=== PATIENT | male | born 1955 | race Caucasian/White ===

== ENCOUNTER 2016-12-04 23:48 | Emergency (ER) | payer OTHER, MEDICAID ==
[~2016-12-04] VITALS: Ht 170.2 cm; Wt 120.0 kg
[~2016-12-04 23:48] MED LIST: ALBU6.7H INH; AMIT10TA6 PO; ASPI325T PO; ATOR40TA16 PO; CARV25TA PO; CREO3000 PO; FENO50TA PO; FENT100D T-DERMAL; GLUM1000 PO; ISOS20TA PO; LANTUS2P SQ; PLAV75TA29 PO; POTA-163 PO; ROXI30TA14 PO; TAMS5CAP PO; XANA1TAB2 PO
[2016-12-04 23:51] VITALS: BP 175/83; PULSE 98; RESP 32; TEMP 98; O2SAT 98
== END 2016-12-05 02:15 | disposition left against medical advice (07) ==
LOC: NED 23:48
DX: R07.9 Chest pain, unspecified (principal)
CPT/HCPCS: 99281

== ENCOUNTER 2017-03-12 19:45 | Observation (INO) | payer OTHER ==
[~2017-03-12] VITALS: Ht 170.2 cm; Wt 115.0 kg
[2017-03-12 19:45] VITALS: RESP 21; O2SAT 99
[2017-03-12 19:52] VITALS: BP 160/70; PULSE 66; RESP 21; TEMP 98; O2SAT 99
[2017-03-12] MEDS ORDERED: SODIUM CHLORIDE 0.9% FLUSH 10 ML FLUSH IVF PRN (20:00)
[2017-03-12 20:09] LABS: BASOPHIL # 0.1 TH/MM3 (0-0.2); BASOPHIL % 0.9 % (0.0-2.0); EOSINOPHIL # 0.2 TH/MM3 (0-0.4); EOSINOPHIL % 3.1 % (0.0-4.0); HEMATOCRIT 41.6 % (39.0-51.0); HEMO FLAGS DIFF FINAL; LYMPH % 23.8 % (9.0-44.0); LYMPHOCYTE # 1.8 TH/MM3 (1.0-4.8); MEAN CELL VOLUME 89.9 FL (80.0-100.0); MEAN CORPUSCULAR HEMOGLOBIN 30.9 PG (27.0-34.0); MEAN CORPUSCULAR HGB CONC 34.4 % (32.0-36.0); MONO % 8.2 % (0.0-8.0); PLATELET COUNT 231 TH/MM3 (150-450); RED BLOOD COUNT 4.63 MIL/MM3 (4.50-5.90); RED CELL DISTRIBUTION WIDTH 13.8 % (11.6-17.2); WHITE BLOOD COUNT 7.8 TH/MM3 (4.0-11.0)
[2017-03-12] MEDS ORDERED: MORPHINE SULFATE 4 MG/ML INJ IV PUSH ONE (20:15)
[2017-03-12 20:23] LABS: APTT (PATIENT) 26.1 SEC (24.3-30.1); INTERNATIONAL NORMALIZED RATIO 0.9 RATIO; PROTHROMBIN TIME - PATIENT 10.2 SEC (9.8-11.6)
[2017-03-12 20:25] LABS: ANION GAP 8 MEQ/L (5-15); BICARBONATE 27.6 MEQ/L (21.0-32.0); BLOOD UREA NITROGEN 14 MG/DL (7-18); CHLORIDE 102 MEQ/L (98-107); GLOMERULAR FILTRATION RATE 55 ML/MIN (>89); MAGNESIUM 1.9 MG/DL (1.5-2.5); SODIUM (NA) 138 MEQ/L (136-145)
[2017-03-12 20:28] LABS: POTASSIUM 4.1 MEQ/L (3.5-5.1)
[2017-03-12 20:31] LABS: CREATINE KINASE 64 U/L (39-308)
[2017-03-12] MEDS ORDERED: ACETAMINOPHEN 500 MG CPLT PO PRN (20:45)
[2017-03-12] MEDS ORDERED: MORPHINE SULFATE 4 MG/ML INJ IV PRN (20:45)
[2017-03-12] MEDS ORDERED: ACETAMINOPHEN/HYDROcodone 325 MG/7.5 MG TAB PO PRN (20:45)
--- NOTE | 2017-03-12 20:52 | PD ---
HPI Chief Complaint: Chest Pain Time Seen by Provider: 20:46 Travel History International Travel<30 days: No Contact w/Intl Traveler<30days: No Traveled to known affect area: No History of Present Illness HPI 61-year-old male that presents to the ED for evaluation of left-sided chest pain that started since this morning. Per patient his been ongoing. Per patient breathing makes it worse but not all the time. Per patient the pain is sharp 8 out of 10. Denies any recent injuries. He does to me that he's had 4 surgeries in his chest to secondary to valve replacements and 2 from repair from damage to the sternum. Per patient he had to have his sternal Rj instructed in November. He states that he has had no issues since. He denies any injuries or traumas. Per patient he does get somewhat short of breath. Pain does not move anywhere else. Per patient he does take aspirin. He continues to smoke. He has a history of hypertension and high cholesterol. Diabetes as well. He follows with Dr. Naqvi for cardiology. Has not had a stress test in late. Denies any abdominal pain. No nausea or vomiting. No urinary or bowel movement issues. Allergies to Lyrica. He does tell me he took a nitroglycerin which did seem to help somewhat his symptoms but the symptoms continued so that is why he called the ambulance brought him here. PFSH Past Medical History Hx Anticoagulant Therapy: Yes (ASA, PLAVIX) Asthma: Yes Blood Disorders: No Anxiety: No Depression: No Heart Rhythm Problems: Yes Cancer: No Cardiac Catheterization: Yes Cardiovascular Problems: Yes (STENTS) High Cholesterol: Yes Chemotherapy: No Chest Pain: Yes Congestive Heart Failure: No COPD: Yes Coronary Artery Disease: Yes Diabetes: Yes Patient Takes Glucophage: Yes Diminished Hearing: No Endocrine: Yes Genitourinary: No Hypertension: Yes Immune Disorder: No Kidney Stones: Yes Musculoskeletal: No Neurologic: No Psychiatric: No Reproductive: No Respiratory: Yes (COPD, ASTHMA) Immunizations Current: Yes Myocardial Infarction: Yes Thyroid Disease: No Triglycerides - High: Yes Tetanus Vaccination: > 5 Years Influenza Vaccination: Yes Past Surgical History Cardiac Surgery: Yes Coronary Artery Bypass Graft: No Coronary Stent: Yes Thoracic Surgery: Yes ([facility] IN 07/2015) Valve Replacement: Yes ([facility] 07/16) Other Surgery: Yes Family History Family Myocardial Infarction: Yes (BROTHERS, DAD, GP'S OF HEART ATTACKS ) Family Hypercholesterolemia: Yes Social History Alcohol Use: No Tobacco Use: Yes (< 1/2 PPD) Substance Use: No Allergies-Medications (Allergen,Severity, Reaction): Coded Allergies: Lyrica (Verified Allergy, Intermediate, MOUTH SWELLING, 12/04/16) Reported Meds & Prescriptions Reported Meds & Active Scripts Active Reported Isosorbide Mononitrate 20 Mg Tab 60 Mg PO BID Take 2 doses 7 hours apart. Potassium Chloride ER (Potassium Chloride) 20 Meq Tab 20 Meq PO BID Fentanyl Patch 72 HR (Fentanyl) 100 Mcg/Hr Patch 100 Mcg T-DERMAL Q3D Remove old patch when new one placed. Xanax (Alprazolam) 1 Mg Tab 1 Mg PO DAILY PRN Tricor (Fenofibrate) 145 Mg Tab 145 Mg PO DAILY Takw with food. Plavix (Clopidogrel Bisulfate) 75 Mg Tab 75 Mg PO DAILY Lantus Inj (Insulin Glargine) 100 Unit/Ml Inj 72 SQ HS Glumetza (Metformin HCl) 1,000 Mg Rizwana 1,000 Mg PO BID With evening meal Flomax (Tamsulosin HCl) 0.4 Mg Cap 0.4 Mg PO HS Carvedilol 25 Mg Tab 25 Mg PO DAILY Atorvastatin (Atorvastatin Calcium) 40 Mg Tab 40 Mg PO HS Aspirin 325 Mg Tab 325 Mg PO DAILY Proventil Hfa 6.7 GM Inh (Albuterol Sulfate) 90 Mcg/Act Aer 2 Puff INH Q4-6H PRN Roxicodone (Oxycodone HCl) 30 Mg Tab 30 Mg PO 5 TIMES A DAY PRN Amitriptyline (Amitriptyline HCl) 10 Mg Tab 20 Mg PO BID Creon (Pancrelipase) 3,000-9,500-15,000 Units Cap 3,000 Cap PO TIDPC Review of Systems Except as stated in HPI: all other systems reviewed are Neg Physical Exam Narrative GENERAL: SKIN: Warm and dry. HEAD: Atraumatic. Normocephalic. EYES: Pupils equal and round. No scleral icterus. No injection or drainage. ENT: No nasal bleeding or discharge. Mucous membranes pink and moist. Tongue is midline. No uvula deviation. NECK: Trachea midline. No JVD. CARDIOVASCULAR: Regular rate and rhythm. Chest pain is not reproducible with touch. No murmurs, S3, S4. RESPIRATORY: No accessory muscle use. Clear to auscultation. Breath sounds equal bilaterally. GASTROINTESTINAL: Abdomen soft, non-tender, nondistended. Hepatic and splenic margins not palpable. MUSCULOSKELETAL: Extremities without clubbing, cyanosis, or edema. No obvious deformities. Full range of motion of the upper and lower extremities bilaterally. 2+ pulses bilaterally. NEUROLOGICAL: Awake and alert. No obvious cranial nerve deficits. Motor grossly within normal limits. Five out of 5 muscle strength in the arms and legs. Normal speech. PSYCHIATRIC: Appropriate mood and affect; insight and judgment normal. Data Data Last Documented VS Vital Signs Date Time Temp Pulse Resp B/P Pulse Ox O2 Delivery O2 Flow Rate FiO2 03/12/17 19:52 98.0 66 21 160/70 99 03/12/17 19:45 Room Air 03/12/17 19:45 2 Orders Electrocardiogram (03/12/17 19:54) Basic Metabolic Panel (Bmp) (03/12/17 19:54) Ckmb (Isoenzyme) Profile (03/12/17 19:54) Complete Blood Count With Diff (03/12/17:54) Magnesium (Mg) (03/12/17 19:54) Prothrombin Time / Inr (Pt) (03/12/17 19:54) Act Partial Throm Time (Ptt) (03/12/17 19:54) Troponin I (03/12/17 19:54) Chest, Single Ap (03/12/17 19:54) Ecg Monitoring (03/12/17 19:54) Bilateral Bp Monitoring (03/12/17 19:54) Iv Access Insert/Monitor (03/12/17 19:54) Oximetry (03/12/17:54) Oxygen Administration (03/12/17:54) Sodium Chloride 0.9% Flush (Ns Flush) (03/12/17 20:00) Morphine Inj (Morphine Inj) (03/12/17 20:15) Admit Order (Ed Use Only) (03/12/17 20:39) Activity Bed Rest With Brp (03/12/17 20:41) Vital Signs (Adult) Q4H (03/12/17 20:41) Cardiac Rhythm .As Directed (03/12/17:41) Notify Dr: Other .PRN (03/12/17 20:41) Notify Dr. Parameters (03/12/17 20:41) Resp Oxygen Nasal Cannula (03/12/17 ) Diet Npo (03/13/17 Breakfast) Ckmb (Isoenzyme) Profile (03/12/17 23:00) Ckmb (Isoenzyme) Profile (03/13/17 02:00) Troponin I (03/12/17 23:00) Troponin I (03/13/17 02:00) Electrocardiogram (03/12/17 23:00) Electrocardiogram (03/13/17 02:00) ^ Obtain (03/12/17 20:41) Acetaminophen (Tylenol) (03/12/17 20:45) Acetamin-Hydrocod 325-7.5 Mg ([place] 7.5 (03/12/17 20:45) Morphine Inj (Morphine Inj) (03/12/17 20:45) Weather Algorithm Scientist / Telemetry MIL.Q8H (03/12/17 20:41) Labs Laboratory Tests Test 03/12/17 20:00 White Blood Count 7.8 TH/MM3 Red Blood Count 4.63 MIL/MM3 Hemoglobin 14.3 GM/DL Hematocrit 41.6 % Mean Corpuscular Volume 89.9 FL Mean Corpuscular Hemoglobin 30.9 PG Mean Corpuscular Hemoglobin 34.4 % Concent Red Cell Distribution Width 13.8 % Platelet Count 231 TH/MM3 Mean Platelet Volume 8.6 FL Neutrophils (%) (Auto) 64.0 % Lymphocytes (%) (Auto) 23.8 % Monocytes (%) (Auto) 8.2 % Eosinophils (%) (Auto) 3.1 % Basophils (%) (Auto) 0.9 % Neutrophils # (Auto) 5.0 TH/MM3 Lymphocytes # (Auto) 1.8 TH/MM3 Monocytes # (Auto) 0.6 TH/MM3 Eosinophils # (Auto) 0.2 TH/MM3 Basophils # (Auto) 0.1 TH/MM3 CBC Comment DIFF FINAL Differential Comment Prothrombin Time 10.2 SEC Prothromb Time International 0.9 RATIO Ratio Activated Partial 26.1 SEC Thromboplast Time Sodium Level 138 MEQ/L Potassium Level 4.1 MEQ/L Chloride Level 102 MEQ/L Carbon Dioxide Level 27.6 MEQ/L Anion Gap 8 MEQ/L Blood Urea Nitrogen 14 MG/DL Creatinine 1.34 MG/DL Estimat Glomerular Filtration 55 ML/MIN Rate Random Glucose 301 MG/DL Calcium Level 8.9 MG/DL Magnesium Level 1.9 MG/DL Total Creatine Kinase 64 U/L Troponin I LESS THAN 0.02 NG/ML MDM Medical Decision Making Medical Screen Exam Complete: Yes Emergency Medical Condition: Yes Medical Record Reviewed: Yes Interpretation(s) CBC & BMP Diagram 03/12/17 20:00 Troponin and CK-MB negative. EKG shows sinus rhythm with no sign of acute ischemia or arrhythmia. RBBB noted. No changes from prior. Read by me and attending. Chest x-ray negative for acute disease Differential Diagnosis Chest pain versus ACS versus a typical chest pain versus normal exam Narrative Course 61-year-old male that presents to the ED for evaluation of chest pain. Patient was properly examined and was found to have signs and symptoms concerning for cardiac disease. Labs and imaging ordered. Labs and imaging were essentially unremarkable at this time. Patient does have multiple risk factors and has not had a stress test in almost a year. Symptoms do not appear to be related to the sternum surgery. I'm deathly concerning for cardiac. Patient continues to smoke. Case discussed in my attending Dr. Villa who agrees to plan. Patient will be admitted to chest pain center. Patient agrees with plan. Patient was admitted to chest pain center by me. Procedures EKG Prior to Arrival: No Diagnosis Primary Impression: Chest pain in adult Admitting Information Admitting Physician Requests: Noel Burleson Mar 12, 2017 20:52
--- NOTE | 2017-03-12 21:11 | RADRPT ---
EXAM DATE/TIME: 03/12/2017 19:50 [facility] COMPARISON: CHEST SINGLE AP, June 29, 2016, 22:22. INDICATIONS : Chest pain. MEDICAL HISTORY : Myocardial infarction. SURGICAL HISTORY : CABG. ENCOUNTER: Initial ACUITY: 1 day PAIN SCORE: 10/10 LOCATION: middle chest. FINDINGS: A single view of the chest demonstrates the lungs to be symmetrically aerated without evidence of mas s, infiltrate or effusion. The patient is status post median sternotomy and has an artificial heart v alve again noted. The heart size is at the upper limits of normal with no perihilar edema. There are overlying electrocardiogram leads. CONCLUSION: No acute disease. Nahun Hickey MD on March 12, 2017 at 21:09 Board Certified Radiologist. This report was verified electronically.
[2017-03-12 22:00] VITALS: BP 155/73; PULSE 66; RESP 18; O2SAT 100
[2017-03-12 22:59] VITALS: BP 143/75; PULSE 69; RESP 18; TEMP 98.9; O2SAT 98
[2017-03-13 02:58] VITALS: BP 153/84; PULSE 64; RESP 18; TEMP 97.8; O2SAT 97
[2017-03-13 07:26] VITALS: BP 190/90; PULSE 51; RESP 20; O2SAT 97
[2017-03-13] MEDS ORDERED: LANTUS2P SQ (07:35)
[2017-03-13] MEDS ORDERED: NOVOLOGP2 SQ (07:35)
--- NOTE | 2017-03-13 08:24 | HHI.DCPOC ---
Discharge Care Plan Diagnosis: (1) Chest pain (2) CAD (coronary artery disease) (3) Hx of CABG (4) Diabetes mellitus (5) COPD exacerbation (6) HTN (hypertension) (7) Hyperlipidemia (8) Tobacco abuse Goals to Promote Your Health * To prevent worsening of your condition and complications * To maintain your health at the optimal level Directions to Meet Your Goals Take your medications as prescribed Follow your dietary instruction Follow activity as directed Keep your appointments as scheduled Take your immunizations and boosters as scheduled If your symptoms worsen call your PCP, if no PCP go to Urgent Care Center or Emergency Room Smoking is Dangerous to Your Health. Avoid second hand smoke Call the 24-hour hour crisis hotline for domestic abuse at Nir Rojas Mar 13, 2017 08:24
[2017-03-13] MEDS ORDERED: ALPRAZolam 1 MG TAB PO PRN (08:30)
[2017-03-13] MEDS ORDERED: OXYCODONE 30 MG PO PRN (08:30)
[2017-03-13 08:36] VITALS: PULSE 72
[2017-03-13] MEDS ORDERED: CLOPIDOGREL 75 MG TAB PO SCH (09:00)
[2017-03-13] MEDS ORDERED: POTASSIUM CHLORIDE 20 MEQ CONTROLLED RELEASE TAB PO SCH (09:00)
[2017-03-13] MEDS ORDERED: METFORMIN 1000 MG PO SCH (09:00)
[2017-03-13] MEDS ORDERED: FENOFIBRATE 145 MG TAB PO SCH (09:00)
[2017-03-13] MEDS ORDERED: ASPIRIN 325 MG TAB PO SCH (09:00)
[2017-03-13] MEDS ORDERED: CARVEDILOL 12.5 MG TAB PO SCH (09:00)
[2017-03-13] MEDS ORDERED: AMITRIPTYLINE HCL 10 MG TAB PO SCH (09:00)
[2017-03-13] MEDS ORDERED: ISOSORBIDE MONONITRATE 20 MG TAB PO SCH (09:00)
--- NOTE | 2017-03-13 09:22 | HHI.HP ---
[facility] Primary Care Physician Pillo Dykes M.D. Chief Complaint Chest pain History of Present Illness This is a 61-year-old male that presents to the ED with a complaint of left lower chest discomfort that began yesterday morning and lasted all day. He has history of heart disease and had a CABG in 2012 and had the sternal wires removed and caged November 2016. He states that the symptoms that he had yesterday do not feel similar to when needing his bypass. He states that he fell 2 days ago landing on his left side and wonders if that may have caused his discomfort. It did not hurt initially when he fell. Denies social shortness red nausea diaphoresis. He no longer has discomfort. 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 He follows Dr. Alvarez and states that he had normal nuclear stress test in January. Review of Systems General: Patient denies fevers, chills recent, and recent travel HEENT: Patient denies headache, sore throat, difficulty swallowing. Cardiovascular: Has the chest discomfort as mentioned above. Denies sensation of heart beating rapidly or irregularly. No syncope. Respiratory: Denies shortness of breath or inspirational chest discomfort. Denies coughing wheezing or hemoptysis. GI: Patient denies nausea, vomiting, diarrhea, abdominal pain, bloody stools. Musculoskeletal: Patient denies joint pain or edema. Denies calf pain or edema. Neurovascular: Patient denies numbness, tingling, weakness in extremities. Denies headache. Endocrine: Denies polyuria and polydipsia. Hematologic: Denies easy bruising. Skin: Denies rash or itching. Past Family Social History Allergies: Coded Allergies: Lyrica (Verified Allergy, Intermediate, MOUTH SWELLING, 12/04/16) Past Medical History CAD with CABG in 2012. Hypertension, hyperlipidemia, diabetes, COPD, and tobacco abuse. Past Surgical History CABG in 2012. Sternal wires removed November 2016. Reported Medications Reported Meds & Active Scripts Active Reported Novolog Inj (Insulin Aspart) 1,000 Unit/10 Ml Vial 48 Units SQ TIDAC Lantus Inj (Insulin Glargine) 1,000 Unit/10 Ml Vial 80 Units SQ HS Isosorbide Mononitrate 20 Mg Tab 60 Mg PO BID Take 2 doses 7 hours apart. Potassium Chloride ER (Potassium Chloride) 20 Meq Tab 20 Meq PO BID Fentanyl Patch 72 HR (Fentanyl) 100 Mcg/Hr Patch 100 Mcg T-DERMAL Q3D Remove old patch when new one placed. Xanax (Alprazolam) 1 Mg Tab 1 Mg PO DAILY PRN Tricor (Fenofibrate) 145 Mg Tab 145 Mg PO DAILY Takw with food. Plavix (Clopidogrel Bisulfate) 75 Mg Tab 75 Mg PO DAILY Glumetza (Metformin HCl) 1,000 Mg Rizwana 1,000 Mg PO BID With evening meal Flomax (Tamsulosin HCl) 0.4 Mg Cap 0.4 Mg PO HS Carvedilol 25 Mg Tab 25 Mg PO DAILY Atorvastatin (Atorvastatin Calcium) 40 Mg Tab 40 Mg PO HS Aspirin 325 Mg Tab 325 Mg PO DAILY Proventil Hfa 6.7 GM Inh (Albuterol Sulfate) 90 Mcg/Act Aer 2 Puff INH Q4-6H PRN Roxicodone (Oxycodone HCl) 30 Mg Tab 30 Mg PO 5 TIMES A DAY PRN Amitriptyline (Amitriptyline HCl) 10 Mg Tab 20 Mg PO BID Creon (Pancrelipase) 3,000-9,500-15,000 Units Cap 3,000 Cap PO TIDPC Active Ordered Medications Current Medications Medications (Trade) Dose Ordered Sig/Deisy Route Start Time Stop Time Status Last Admin (NS Flush) 2 ml UNSCH PRN IVF 03/12/17 20:00 (Tylenol) 500 mg Q4H PRN PO 03/12/17 20:45 ([place] 7.5-325 Mg) 1 tab Q4H PRN PO 03/12/17 20:45 (Morphine Inj) 2 mg Q4H PRN IV 03/12/17 20:45 (Xanax) 1 mg DAILY PRN PO 03/13/17 08:30 UNV (Elavil) 20 mg BID PO 03/13/17 09:00 UNV (Aspirin) 325 mg DAILY PO 03/13/17 09:00 UNV (Lipitor) 40 mg HS PO 03/13/17 21:00 UNV (Coreg) 25 mg DAILY PO 03/13/17 09:00 UNV (Plavix) 75 mg DAILY PO 03/13/17 09:00 UNV (Tricor) 145 mg DAILY PO 03/13/17 09:00 UNV (NovoLOG INJ) 48 units TIDAC SQ 03/13/17 12:00 UNV (Lantus Inj) 80 units HS SQ 03/13/17 21:00 UNV (Ismo) 60 mg BID PO 03/13/17 09:00 UNV (KCl) 20 meq BID PO 03/13/17 09:00 UNV (Flomax) 0.4 mg HS PO 03/13/17 21:00 UNV Non-Formulary Medication 1,000 mg BID PO 03/13/17 09:00 UNV Non-Formulary Medication 3,000 cap TIDPC PO 03/13/17 09:30 UNV Family History There is family history of CAD. Social History Patient continues to smoke but has diminished the amount to about 4 cigarettes a day. Occasional alcohol. Denies illicit drugs. Physical Exam Vital Signs Vital Signs Date Time Temp Pulse Resp B/P Pulse Ox O2 Delivery O2 Flow Rate FiO2 03/13/17 08:36 72 03/13/17 07:26 51 20 190/90 97 03/13/17 02:58 97.8 64 18 153/84 97 03/12/17 22:59 98.9 69 18 143/75 98 03/12/17 22:00 66 18 155/73 100 Nasal Cannula 2 03/12/17 19:52 98.0 66 21 160/70 99 03/12/17 19:45 67 21 99 Room Air 03/12/17 19:45 99 Nasal Cannula 2 03/12/17 19:45 21 99 Nasal Cannula 2 Physical Exam GENERAL: This is a well-nourished, well-developed patient, in no apparent distress. Patient speaks in clear complete sentences. Patient is pleasant. HEENT: Head is atraumatic and normocephalic. Neck is supple without lymphadenopathy and trachea is midline. No JVD or carotid bruits. CARDIOVASCULAR: Regular rate and rhythm without murmurs, gallops, or rubs. RESPIRATORY: Clear to auscultation. Breath sounds equal bilaterally. No wheezes , rales, or rhonchi. Chest wall is nontender. No use of accessory muscles. GASTROINTESTINAL: Abdomen is nontender, nondistended. Abdomen soft. No obvious pulsatile mass or bruit. No CVA tenderness. Strong femoral pulses bilaterally. Normal bowel sounds in all quadrants. MUSCULOSKELETAL: Patient is moving upper and lower extremities freely. No calf tenderness or edema, no Homans sign. Strong pulses in upper and lower extremities. NEUROLOGICAL: Patient is alert and oriented. Cranial nerves 2-12 are grossly intact. No focal deficits and speech is clear. SKIN: No rash and turgor is normal. Laboratory Laboratory Tests Test 03/12/17 03/12/17 03/13/17 20:00 23:01 02:46 White Blood Count 7.8 Red Blood Count 4.63 Hemoglobin 14.3 Hematocrit 41.6 Mean Corpuscular Volume 89.9 Mean Corpuscular Hemoglobin 30.9 Mean Corpuscular Hemoglobin 34.4 Concent Red Cell Distribution Width 13.8 Platelet Count 231 Mean Platelet Volume 8.6 Neutrophils (%) (Auto) 64.0 Lymphocytes (%) (Auto) 23.8 Monocytes (%) (Auto) 8.2 Eosinophils (%) (Auto) 3.1 Basophils (%) (Auto) 0.9 Neutrophils # (Auto) 5.0 Lymphocytes # (Auto) 1.8 Monocytes # (Auto) 0.6 Eosinophils # (Auto) 0.2 Basophils # (Auto) 0.1 CBC Comment DIFF FINAL Differential Comment Prothrombin Time 10.2 Prothromb Time International 0.9 Ratio Activated Partial 26.1 Thromboplast Time Sodium Level 138 Potassium Level 4.1 Chloride Level 102 Carbon Dioxide Level 27.6 Anion Gap 8 Blood Urea Nitrogen 14 Creatinine 1.34 Estimat Glomerular Filtration 55 Rate Random Glucose 301 Calcium Level 8.9 Magnesium Level 1.9 Total Creatine Kinase 64 56 54 Troponin I LESS THAN 0.02 0.02 0.02 Result Diagram: 03/12/17199903/12/171999 Imaging Last 24 hours Impressions Chest X-Ray 03/12/171953 Signed Impressions: Service Date/Time: Sunday, March 12, 2017 19:50 - CONCLUSION: No acute disease. Nahun Hickey MD Course EKGs have sinus rhythm with right bundle branch block without significant ST segment depressions or elevations. Assessment and Plan Assessment and Plan * Atypical chest pain: Patient had serial cardiac enzymes and EKGs for ruling out purposes. He was seen by Dr. Carlito Cross of cardiology in the chest pain center and sinus symptoms be atypical. He had a reported normal nuclear stress test 2 months ago. He is no longer having discomforts. He'll be discharged home at this time with instructions follow-up with his primary care physician as well as his auto hiker. He should resume all his medications. * CAD: Patient to follow-up with his auto hiker. He is continue his medications. * Hypertension: Continue current medications. * COPD: Continue current medications. He needs to quit smoking. * Tobacco abuse: Patient is been counseled on importance of smoking cessation. * Hyperlipidemia: Continue current medications. * Diabetes: Patient is to be on a diabetic diet. He should continue his current medications. Patient is agreeable to this plan. He is stable at this time. Nir Rojas Mar 13, 2017 09:22
[2017-03-13] MEDS ORDERED: PANCRELIPASE PO SCH (09:30)
[2017-03-13] MEDS ORDERED: INSULIN ASPART 1,000 UNITS/10 ML VIAL SQ SCH (12:00)
--- NOTE | 2017-03-13 12:04 | EKG ---
Date Performed: 03/13/2017 Time Performed: 02:56:37 PTAGE: 61 years EKG: Sinus rhythm RIGHT BUNDLE BRANCH BLOCK LEFT ANTERIOR FASCICULAR BLOCK INFERIOR MYOCARDIAL INFARCTION ABNORMAL ECG PREVIOUS TRACING : 03/12/2017 23.04 Since previous tracing, no significant change noted DOCTOR: Carlito Cross Interpretating Date/Time 03/13/2017 11:56:57
--- NOTE | 2017-03-13 12:05 | EKG ---
Date Performed: 03/12/2017 Time Performed: 23:04:30 PTAGE: 61 years EKG: Sinus rhythm RIGHT BUNDLE BRANCH BLOCK LEFT ANTERIOR FASCICULAR BLOCK INFERIOR MYOCARDIAL INFARCTION ABNORMAL ECG PREVIOUS TRACING : 03/12/2017 19.52 Since previous tracing, no significant change noted DOCTOR: Carlito Cross Interpretating Date/Time 03/13/2017 11:58:58
--- NOTE | 2017-03-13 12:07 | EKG ---
Date Performed: 03/12/2017 Time Performed: 19:52:53 PTAGE: 61 years EKG: Sinus rhythm RIGHT BUNDLE BRANCH BLOCK LEFT ANTERIOR FASCICULAR BLOCK INFERIOR MYOCARDIAL INFARCTION ABNORMAL ECG PREVIOUS TRACING : 11/07/2016 00.41 Since previous tracing, no significant change noted DOCTOR: Carlito Cross Interpretating Date/Time 03/13/2017 12:00:32
[2017-03-13] MEDS ORDERED: ATORVASTATIN 40 MG TAB PO SCH (21:00)
[2017-03-13] MEDS ORDERED: TAMSULOSIN HCL 0.4 MG CAP PO SCH (21:00)
[2017-03-13] MEDS ORDERED: INSULIN GLARGINE 1,000 UNITS/10 ML VIAL SQ SCH (21:00)
== END 2017-03-13 09:57 | disposition home or self-care (01) ==
LOC: NEPC 19:45 → NEDA 20:41 → NEPHCDU 22:29
PROVIDERS: ADMIT Internal Medicine Interventional Cardiology; ATTEND Internal Medicine Interventional Cardiology
DX: R07.89 Other chest pain (principal); I25.10 Atherosclerotic heart disease of native coronary artery without angina pectoris; I10 Essential (primary) hypertension; E78.5 Hyperlipidemia, unspecified; E11.9 Type 2 diabetes mellitus without complications; J44.9 Chronic obstructive pulmonary disease, unspecified; F17.210 Nicotine dependence, cigarettes, uncomplicated; I25.2 Old myocardial infarction; E78.00 Pure hypercholesterolemia, unspecified; Z79.4 Long term (current) use of insulin; Z79.02 Long term (current) use of antithrombotics/antiplatelets; Z79.82 Long term (current) use of aspirin; Z95.1 Presence of aortocoronary bypass graft; Z88.8 Allergy status to other drugs, medicaments and biological substances; Z95.5 Presence of coronary angioplasty implant and graft; Z79.51 Long term (current) use of inhaled steroids
CPT/HCPCS: 71010; 80048; 82550; 83735; 84484; 85025; 85610; 85730; 93005; 96374; 99285; G0378; J2270

== ENCOUNTER 2017-08-06 20:09 | Emergency (ER) | payer OTHER, MEDICAID ==
[~2017-08-06] VITALS: Ht 170.2 cm; Wt 115.5 kg
[~2017-08-06 20:09] MED LIST changes: +NOVOLOGP2 SQ
[2017-08-06 20:11] VITALS: BP 139/71; PULSE 66; RESP 18; TEMP 97.9; O2SAT 96
[2017-08-06] MEDS ORDERED: NOVOLOGP2 SQ (21:49)
[2017-08-06] MEDS ORDERED: SODIUM CHLOR 0.9% 1000 ML INJ 1,000 ML IV SCH (21:52)
[2017-08-06] MEDS ORDERED: ONDANSETRON HCL 4 MG/2 ML VIAL IVP ONE (22:00)
[2017-08-06] MEDS ORDERED: MORPHINE SULFATE 4 MG/ML INJ IV PUSH ONE (22:00)
--- NOTE | 2017-08-06 22:14 | PD ---
HPI Chief Complaint: Abdominal Pain Time Seen by Provider: 21:41 Travel History International Travel<30 days: No Contact w/Intl Traveler<30days: No Traveled to known affect area: No History of Present Illness HPI 61-year-old male that presents to the ED for evaluation of constipation for 14 days as well as blood in stool today when he wiped as well as left flank pain. Patient has a chronic history kidney stones and states that the left flank pain feels similar to his kidney stones. Per patient she's never had a seizure constipation in the past. Per patient she's been using [id number] enema as well as laxatives with no relief. He has been able to pass gas but he has not been able to pass any stool. Today he got concerned because when he was trying to go he was not able to go but he did wiped his bottom legs and felt some blood and he saw blood on the paper. Per patient he was small amount but enough for him to be concerned. He does have a history of heart disease for which he uses Plavix. He denies any chest pain or shortness of breath. He states compliance with his blood thinner. He has allergies to latex and pregabalin. Per patient his pain especially on the left flank is 7 out of 10. He denies seeing anybody for this. No other medical issues. PFSH Past Medical History Hx Anticoagulant Therapy: Yes (ASA, PLAVIX) Asthma: Yes Blood Disorders: No Anxiety: No Depression: No Heart Rhythm Problems: No Cancer: No Cardiac Catheterization: Yes (2X) Cardiovascular Problems: Yes (MVP, 2 POST OP CORRECTIVE SX.S) High Cholesterol: Yes Chemotherapy: No Chest Pain: Yes Congestive Heart Failure: Yes COPD: Yes Coronary Artery Disease: Yes Diabetes: Yes Patient Takes Glucophage: No Diminished Hearing: No Endocrine: Yes Gastrointestinal Disorders: No Genitourinary: No Hypertension: Yes Immune Disorder: No Kidney Stones: Yes Medical other: Yes (RA) Musculoskeletal: No Neurologic: No Psychiatric: No Reproductive: No Respiratory: Yes (COPD, ASTHMA) Immunizations Current: Yes Myocardial Infarction: Yes Thyroid Disease: No Triglycerides - High: Yes Tetanus Vaccination: > 5 Years Influenza Vaccination: Yes Past Surgical History Cardiac Surgery: Yes (STERNUM REPAIR 11/16) Coronary Artery Bypass Graft: No Coronary Stent: Yes Thoracic Surgery: Yes (MVR IN 07/2015) Valve Replacement: Yes (MVR 07/16) Other Surgery: Yes Family History Family Myocardial Infarction: Yes Family Hypercholesterolemia: Yes Social History Alcohol Use: No Tobacco Use: Yes (< 1/2 PPD) Substance Use: No Allergies-Medications (Allergen,Severity, Reaction): Coded Allergies: pregabalin (Verified Allergy, Intermediate, MOUTH SWELLING, 08/06/17) latex (Verified Allergy, Mild, Rash, 08/06/17) Reported Meds & Prescriptions Reported Meds & Active Scripts Active Reported Novolog Inj (Insulin Aspart) 1,000 Unit/10 Ml Vial 75 Units SQ TIDAC Lantus Inj (Insulin Glargine) 1,000 Unit/10 Ml Vial 80 Units SQ HS Isosorbide Mononitrate 20 Mg Tab 60 Mg PO BID Take 2 doses 7 hours apart. Potassium Chloride ER (Potassium Chloride) 20 Meq Tab 20 Meq PO BID Fentanyl Patch 72 HR (Fentanyl) 100 Mcg/Hr Patch 100 Mcg T-DERMAL Q3D Remove old patch when new one placed. Xanax (Alprazolam) 1 Mg Tab 1 Mg PO DAILY PRN Tricor (Fenofibrate) 145 Mg Tab 145 Mg PO DAILY Takw with food. Plavix (Clopidogrel Bisulfate) 75 Mg Tab 75 Mg PO DAILY Glumetza (Metformin HCl) 1,000 Mg Rizwana 1,000 Mg PO BID With evening meal Flomax (Tamsulosin HCl) 0.4 Mg Cap 0.4 Mg PO HS Carvedilol 25 Mg Tab 25 Mg PO DAILY Atorvastatin (Atorvastatin Calcium) 40 Mg Tab 40 Mg PO HS Aspirin 325 Mg Tab 325 Mg PO DAILY Proventil Hfa 6.7 GM Inh (Albuterol Sulfate) 90 Mcg/Act Aer 2 Puff INH Q4-6H PRN Roxicodone (Oxycodone HCl) 30 Mg Tab 30 Mg PO 5 TIMES A DAY PRN Amitriptyline (Amitriptyline HCl) 10 Mg Tab 20 Mg PO BID Creon (Pancrelipase) 3,000-9,500-15,000 Units Cap 3,000 Cap PO TIDPC Review of Systems Except as stated in HPI: all other systems reviewed are Neg Physical Exam Narrative GENERAL: SKIN: Warm and dry. HEAD: Atraumatic. Normocephalic. EYES: Pupils equal and round. No scleral icterus. No injection or drainage. ENT: No nasal bleeding or discharge. Mucous membranes pink and moist. Tongue is midline. No uvula deviation. NECK: Trachea midline. No JVD. CARDIOVASCULAR: Regular rate and rhythm. No murmurs, S3, S4. RESPIRATORY: No accessory muscle use. Clear to auscultation. Breath sounds equal bilaterally. GASTROINTESTINAL: Abdomen soft, Tenderness to palpation on the RUQ and LLQ, nondistended. Hepatic and splenic margins not palpable. MUSCULOSKELETAL: Extremities without clubbing, cyanosis, or edema. No obvious deformities. Full range of motion of the upper and lower extremities bilaterally. 2+ pulses bilaterally. NEUROLOGICAL: Awake and alert. No obvious cranial nerve deficits. Motor grossly within normal limits. Five out of 5 muscle strength in the arms and legs. Normal speech. PSYCHIATRIC: Appropriate mood and affect; insight and judgment normal. Data Data Last Documented VS Vital Signs Date Time Temp Pulse Resp B/P (MAP) Pulse Ox O2 Delivery O2 Flow Rate FiO2 08/06/17 20:11 97.9 66 18 139/71 (93) 96 Orders Orders Complete Blood Count With Diff (08/06/17 21:52) Comprehensive Metabolic Panel (08/06/17 21:52) Lipase (08/06/17 21:52) Prothrombin Time / Inr (Pt) (08/06/17 21:52) Act Partial Throm Time (Ptt) (08/06/17 21:52) Urinalysis - C+S If Indicated (08/06/17 21:52) Ct Abd/Pel W Iv Contrast(Rout) (08/06/17 21:52) Iv Access Insert/Monitor (08/06/17 21:52) Morphine Inj (Morphine Inj) (08/06/17 22:00) Ondansetron Inj (Zofran Inj) (08/06/17 22:00) Sodium Chlor 0.9% 1000 Ml Inj (Ns 1000 M (08/06/17 21:52) Labs Laboratory Tests Test 08/06/17 21:56 White Blood Count 10.0 TH/MM3 Red Blood Count 4.62 MIL/MM3 Hemoglobin 14.4 GM/DL Hematocrit 42.1 % Mean Corpuscular Volume 91.1 FL Mean Corpuscular Hemoglobin 31.2 PG Mean Corpuscular Hemoglobin Concent 34.3 % Red Cell Distribution Width 13.8 % Platelet Count 225 TH/MM3 Mean Platelet Volume 8.6 FL Neutrophils (%) (Auto) 69.3 % Lymphocytes (%) (Auto) 17.2 % Monocytes (%) (Auto) 9.8 % Eosinophils (%) (Auto) 2.8 % Basophils (%) (Auto) 0.9 % Neutrophils # (Auto) 6.9 TH/MM3 Lymphocytes # (Auto) 1.7 TH/MM3 Monocytes # (Auto) 1.0 TH/MM3 Eosinophils # (Auto) 0.3 TH/MM3 Basophils # (Auto) 0.1 TH/MM3 CBC Comment DIFF FINAL Differential Comment Prothrombin Time 11.4 SEC Prothromb Time International Ratio 1.0 RATIO Activated Partial Thromboplast Time 30.3 SEC Blood Urea Nitrogen 12 MG/DL Creatinine 1.06 MG/DL Random Glucose 245 MG/DL Total Protein 7.2 GM/DL Albumin 3.3 GM/DL Calcium Level 8.6 MG/DL Alkaline Phosphatase 113 U/L Aspartate Amino Transf (AST/SGOT) 17 U/L Alanine Aminotransferase (ALT/SGPT) 25 U/L Total Bilirubin 0.3 MG/DL Sodium Level 137 MEQ/L Potassium Level 4.1 MEQ/L Chloride Level 101 MEQ/L Carbon Dioxide Level 28.0 MEQ/L Anion Gap 8 MEQ/L Estimat Glomerular Filtration Rate 72 ML/MIN Lipase 606 U/L MDM Medical Decision Making Medical Screen Exam Complete: Yes Emergency Medical Condition: Yes Medical Record Reviewed: Yes Differential Diagnosis Abdominal pain versus diverticulitis versus obstruction versus constipation versus nephrolithiasis versus acute on chronic pain versus chronic pain versus GI bleed Narrative Course 61-year-old male that presents to the ED for evaluation of abdominal pain and possible GI bleed. Patient was properly examined and was found to have signs and symptoms consistent appears to be constipation versus nephrolithiasis and GI bleed. Labs and imaging were ordered. Hemoccult was done by me and was positive for blood. Patient does have a small hemorrhoid but does not appear to be acutely thrombosed. Unclear if this is the cause of the GI bleed. Labs and imaging were ordered. Patient was given IV pain medications and fluids. Case will be signed out to my attending pending results and disposition. [facility]Prompt Point of Care Internal Pos. & Neg. Controls: Passed Fecal Specimen Occult Blood: Positive Noel Odonnell Aug 06, 2017 22:14
[2017-08-06 22:22] LABS: AUTOMATED NEUTROPHIL # 6.9 TH/MM3 (1.8-7.7); BASOPHIL # 0.1 TH/MM3 (0-0.2); BASOPHIL % 0.9 % (0.0-2.0); EOSINOPHIL # 0.3 TH/MM3 (0-0.4); EOSINOPHIL % 2.8 % (0.0-4.0); HEMATOCRIT 42.1 % (39.0-51.0); HEMO FLAGS DIFF FINAL; LYMPH % 17.2 % (9.0-44.0); LYMPHOCYTE # 1.7 TH/MM3 (1.0-4.8); MEAN CELL VOLUME 91.1 FL (80.0-100.0); MEAN CORPUSCULAR HEMOGLOBIN 31.2 PG (27.0-34.0); MEAN CORPUSCULAR HGB CONC 34.3 % (32.0-36.0); MONO % 9.8 % (0.0-8.0); NEUT % 69.3 % (16.0-70.0); PLATELET COUNT 225 TH/MM3 (150-450); RED BLOOD COUNT 4.62 MIL/MM3 (4.50-5.90); RED CELL DISTRIBUTION WIDTH 13.8 % (11.6-17.2)
[2017-08-06 22:36] LABS: APTT (PATIENT) 30.3 SEC (24.3-30.1); PROTHROMBIN TIME - PATIENT 11.4 SEC (9.8-11.6)
[2017-08-06 22:40] LABS: ANION GAP 8 MEQ/L (5-15); AST (GOT) 17 U/L (15-37); BLOOD UREA NITROGEN 12 MG/DL (7-18); CHLORIDE 101 MEQ/L (98-107); GLOMERULAR FILTRATION RATE 72 ML/MIN (>89); POTASSIUM 4.1 MEQ/L (3.5-5.1); SODIUM (NA) 137 MEQ/L (136-145)
[2017-08-06 22:45] LABS: ALKALINE PHOSPHATASE 113 U/L (45-117); ALT (GPT) 25 U/L (12-78); TOTAL BILIRUBIN ADULT 0.3 MG/DL (0.2-1.0)
[2017-08-06 23:15] LABS: BLOOD, URINE SMALL (NEG); COMMENT (UR) CULT NOT INDICATED; CULTURE IF INDICATED CULT NOT INDICATED; GLUCOSE,URINE 300 mg/dL (NEG); HYALINE CAST, URINE 3 /lpf (RARE); KETONE, URINE NEG (NEG); MUCUS URINE FEW /lpf (OCC); NITRITE,URINE NEG (NEG); PH, URINE 5.5 (5.0-8.5); URINE COLOR YELLOW (YELLW/STRAW)
[2017-08-06] MEDS ORDERED: IOHEXOL 350 MG/ML 10 ML VIAL (for RAD DIAG) IVCONTRAST ONE (23:15)
--- NOTE | 2017-08-06 23:24 | RADRPT ---
EXAM DATE/TIME: 08/06/2017 23:00 [facility] COMPARISON: CT ABDOMEN & PELVIS W CONTRAST, March 06, 2015, 3:35. INDICATIONS : Abdomen pain past 2 weeks. IV CONTRAST: 100 cc Omnipaque 350 (iohexol) IV ORAL CONTRAST: No oral contrast ingested. RADIATION DOSE: 14.37 CTDIvol (mGy) MEDICAL HISTORY : Cardiovascular disease. Hypertension. Diabetes mellitus type 2.Renal stones SURGICAL HISTORY : CABG ENCOUNTER: Initial ACUITY: 2 weeks PAIN SCALE: 9/10 LOCATION: Bilateral abdomen TECHNIQUE: Volumetric scanning of the abdomen and pelvis was performed. Using automated exposure control and ad justment of the mA and/or kV according to patient size, radiation dose was kept as low as reasonably achievable to obtain optimal diagnostic quality images. DICOM format image data is available electro nically for review and comparison. FINDINGS: LOWER LUNGS: The visualized lower lungs are clear. LIVER: Mild diffusely decreased hepatic density without significant volume loss or intrapelvic ductal dilata tion. No significant focal mass. Gallbladder appears unremarkable by CT. SPLEEN: Normal size without lesion. Probable splenule is noted anteriorly and posteriorly along the inferior margin. PANCREAS: Within normal limits. KIDNEYS: Kidneys demonstrate symmetrical enhancement without evidence for hydronephrosis. Small 3 mm calcified density in the inferior pole of the left kidney may reflect a small calyceal calculus. ADRENAL GLANDS: Within normal limits. VASCULAR: There is no aortic aneurysm. BOWEL/MESENTERY: The stomach, small bowel, and colon demonstrate no acute abnormality. There is no free intraperitone al air or fluid. Appendix is visualized and appears unremarkable. ABDOMINAL WALL: Within normal limits. RETROPERITONEUM: There is no lymphadenopathy. BLADDER: Decompressed which accentuates the bladder wall. REPRODUCTIVE: Within normal limits. INGUINAL: There is no lymphadenopathy or hernia. MUSCULOSKELETAL: Within normal limits for patient age. CONCLUSION: 1. 3 mm nonobstructing inferior pole left calyceal calculus. 2. Otherwise, No acute findings to explain patient's abdominal pain. 3. Normal appendix. 4. Redemonstration of hepatic steatosis. Deepak Yuen MD on August 06, 2017 at 23:17 Board Certified Radiologist. This report was verified electronically.
--- NOTE | 2017-08-06 23:40 | PD ---
Physical Exam Narrative General: The patient is a well-developed well-nourished male in no acute distress. Head and Neck exam: Head is normocephalic atraumatic. Eyes: EOMI, pupils are equal round and reactive to light. Nose: Midline septum with pink mucous membranes Mouth: Dentition unremarkable. Moist mucus membranes. Posterior oropharynx is not erythematous. No tonsillar hypertrophy. Uvula midline. Airway patent. Neck: No palpable lymphadenopathy. No nuchal rigidity. No thyromegaly. Cardiovascular: Regular rate and rhythm with a 2/6 systolic murmur, no gallops or rubs. Lungs: Clear to auscultation bilaterally. No wheezes, rhonchi, or rales. Abdomen: Soft, without tenderness to palpation in all 4 quadrants of the abdomen. No guarding, rebound, or rigidity. Normal bowel sounds are audible. No tenderness on palpation of McBurney's point. Negative White's sign. Extremities: No clubbing or cyanosis. The patient has trace pitting edema bilateral lower extremities. 2+ pulses in all 4 extremities. No calf tenderness on palpation. Back: No spinous process tenderness to palpation. No costovertebral angle tenderness to palpation. Neurologic Exam: Grossly nonfocal. Skin Exam: No rash noted. Intact skin that is warm and dry. Data Data Last Documented VS Vital Signs Date Time Temp Pulse Resp B/P (MAP) Pulse Ox O2 Delivery O2 Flow Rate FiO2 08/06/17 20:11 97.9 66 18 139/71 (93) 96 Orders Orders Complete Blood Count With Diff (08/06/17 21:52) Comprehensive Metabolic Panel (08/06/17 21:52) Lipase (08/06/17 21:52) Prothrombin Time / Inr (Pt) (08/06/17 21:52) Act Partial Throm Time (Ptt) (08/06/17 21:52) Urinalysis - C+S If Indicated (08/06/17 21:52) Ct Abd/Pel W Iv Contrast(Rout) (08/06/17 21:52) Iv Access Insert/Monitor (08/06/17 21:52) Morphine Inj (Morphine Inj) (08/06/17 22:00) Ondansetron Inj (Zofran Inj) (08/06/17 22:00) Sodium Chlor 0.9% 1000 Ml Inj (Ns 1000 M (08/06/17 21:52) Iohexol 350 Inj (Omnipaque 350 Inj) (08/06/17 23:15) Labs Laboratory Tests Test 08/06/17 21:56 08/06/17 22:46 White Blood Count 10.0 TH/MM3 Red Blood Count 4.62 MIL/MM3 Hemoglobin 14.4 GM/DL Hematocrit 42.1 % Mean Corpuscular Volume 91.1 FL Mean Corpuscular Hemoglobin 31.2 PG Mean Corpuscular Hemoglobin Concent 34.3 % Red Cell Distribution Width 13.8 % Platelet Count 225 TH/MM3 Mean Platelet Volume 8.6 FL Neutrophils (%) (Auto) 69.3 % Lymphocytes (%) (Auto) 17.2 % Monocytes (%) (Auto) 9.8 % Eosinophils (%) (Auto) 2.8 % Basophils (%) (Auto) 0.9 % Neutrophils # (Auto) 6.9 TH/MM3 Lymphocytes # (Auto) 1.7 TH/MM3 Monocytes # (Auto) 1.0 TH/MM3 Eosinophils # (Auto) 0.3 TH/MM3 Basophils # (Auto) 0.1 TH/MM3 CBC Comment DIFF FINAL Differential Comment Prothrombin Time 11.4 SEC Prothromb Time International Ratio 1.0 RATIO Activated Partial Thromboplast Time 30.3 SEC Blood Urea Nitrogen 12 MG/DL Creatinine 1.06 MG/DL Random Glucose 245 MG/DL Total Protein 7.2 GM/DL Albumin 3.3 GM/DL Calcium Level 8.6 MG/DL Alkaline Phosphatase 113 U/L Aspartate Amino Transf (AST/SGOT) 17 U/L Alanine Aminotransferase (ALT/SGPT) 25 U/L Total Bilirubin 0.3 MG/DL Sodium Level 137 MEQ/L Potassium Level 4.1 MEQ/L Chloride Level 101 MEQ/L Carbon Dioxide Level 28.0 MEQ/L Anion Gap 8 MEQ/L Estimat Glomerular Filtration Rate 72 ML/MIN Lipase 606 U/L Urine Color YELLOW Urine Turbidity CLEAR Urine pH 5.5 Urine Specific Rosalia 1.013 Urine Protein 100 mg/dL Urine Glucose (UA) 300 mg/dL Urine Ketones NEG mg/dL Urine Occult Blood SMALL Urine Nitrite NEG Urine Bilirubin NEG Urine Urobilinogen LESS THAN 2.0 MG/DL Urine Leukocyte Esterase NEG Urine RBC 3 /hpf Urine WBC 1 /hpf Urine Hyaline Casts 3 /lpf Urine Mucus FEW /lpf Microscopic Urinalysis Comment CULT NOT INDICATED MDM Medical Record Reviewed: Yes Supervised Visit with EUGENIA: No Interpretation(s) Last Impressions Abdomen/Pelvis CT 08/06/172151 Signed Impressions: Service Date/Time: Sunday, August 06, 2017 23:00 - CONCLUSION: 1. 3 mm nonobstructing inferior pole left calyceal calculus. 2. Otherwise, No acute findings to explain patient's abdominal pain. 3. Normal appendix. 4. Redemonstration of hepatic steatosis. Deepak Yuen MD Narrative Course During the course of the patients emergency department visit, the patients history, examination, and differential diagnosis were reviewed with the patient. The patient had IV access obtained and blood work sent for analysis. The patient was placed on a environmental monitoring technician with oximetry and blood pressure monitoring. The patient's case was checked out to me by Pranav, please see his complete history and physical. The patient presented with a reported history of constipation for the last 14 days. He additionally reported having blood on the toilet paper when he wiped after trying to move his bowels. The patient was initially provided morphine 4 mg IV for pain, Zofran 4 mg IV for nausea, normal saline 1 L IV fluid bolus. The patients laboratory studies were reviewed and remarkable for a CBC that shows a white count of 10, hemoglobin 14.4, platelets 225 with 9.8 monocytes, CMP is remarkable for a glucose of 245, albumin 3.3, lipase 606, urinalysis shows 1300, glucose 300, small occult blood, otherwise unremarkable. PT 11.4, PTT 30.3 Radiology studies were reviewed and remarkable for a CT scan of the abdomen and pelvis that shows a nonobstructing 3 mm inferior pole left calyceal calculus area and otherwise no acute findings to explain the patient's abdominal pain. Normal-appearing appendix. Hepatic steatosis is again noted. The patient was reexamined by me. The patient has a benign abdomen on examination with no focal tenderness at this time. The patient reports feeling improved. The patient's laboratory studies were reviewed with him. The patient was instructed regarding the importance of close follow-up with his primary care physician. He reports that he has an appointment scheduled for next Saturday. The patient will be discharged home with a prescription for Lubiprostone for opiate-induced constipation. The patient is resting comfortably and feels better, is alert and in no distress. The patients results and examination findings were discussed with the patient. The repeat examination is unremarkable and benign. The history, exam, diagnostic testing, and current condition do not suggest any significant pathology to warrant further testing, continued ED treatment, admission, or surgical evaluation at this point. The vital signs have been stable. The patient does not have uncontrollable pain, intractable vomiting, or other significant symptoms. The patient's condition is stable and appropriate for discharge. The patient will pursue further outpatient evaluation with a primary care physician or other designated or consulting physician as indicated in the discharge instructions. The patient expressed understanding and was agreeable with this plan. Diagnosis Primary Impression: Constipation Qualified Codes: K59.03 - Drug induced constipation Referrals: Primary Care Physician 2 days Patient Instructions: Constipation (ED), General Instructions Additional Instruction: The patient is instructed to increase the fiber in his diet. The patient is instructed to increase his fluid intake to 8 glasses of water daily. He is instructed to exercise by walking 30 minutes daily to encourage bowel movements. The patient is instructed to supplement his fiber with Benefiber. Med/Other Pt SpecificInfo: Prescription(s) given Scripts Lubiprostone (Amitiza) 24 Mcg Cap 24 MG PO BID for Constipation, #14 CAP 0 Refills Prov: Deja Kenney MD 08/06/17 Deja Kenney MD Aug 06, 2017 23:40
[2017-08-06] MEDS ORDERED: AMIT24CA5 PO (23:59)
[2017-08-07] VITALS: BP 127/74; PULSE 74; RESP 18; O2SAT 99
== END 2017-08-07 00:24 | disposition home or self-care (01) ==
LOC: NEPE 20:09
DX: K59.03 Drug induced constipation (principal); K62.5 Hemorrhage of anus and rectum; I25.10 Atherosclerotic heart disease of native coronary artery without angina pectoris; I10 Essential (primary) hypertension; Z95.5 Presence of coronary angioplasty implant and graft; E11.9 Type 2 diabetes mellitus without complications
CPT/HCPCS: 74177; 80053; 81001; 83690; 85025; 85610; 85730; 96361; 96374; 96375; 99285; J2270; J2405; J7030; Q9967